=== PATIENT | male | born 1945 | race Caucasian/White ===

== ENCOUNTER → 2016-12-09 | Outpatient (CLI) | payer MEDICARE, OTHER ==
[~2016-12-09] MED LIST: ALTACE PO; ARTANE2 M1 PO; ASPIRIN81 M2 PO; BAYER ASPIRIN325 M1 PO; BYSTOLIC10 MG PO; BYSTOLIC5 MG PO; CENTRUM COMPLE1 EACH PO; CENTRUM SILVER PO; COLACE PO; CYANOCOBALAM1000 MCG PO; DAKIN'S MODIF1000 ML EXT; DIABETA2.5 MG PO; FISH OIL 1,2001 CAP PO; FLUOROURACIL IV; GLUCOTROL PO; LISINOPRIL10 MG PO; NIACIN ER500 MG PO; NIASPAN PO; NITROGLYCERIN0.4 MG SL; PERCOCET 7.5/321 TAB PO; PERCOCET 71 UDTAB 7. PO; PLAVIX PO; PRAVASTATIN SOD40 MG PO; PROTONIX PO; RAPAFLO4 MG PO; VITAMIN B-1100 M1 PO; VITAMIN B650 M1 PO; VITAMIN C1000 M2 PO
--- NOTE | ~2016-12-09 | CT2 ---
[facility] A Service of [facility] RADIOLOGY TEXT RESULTS PATIENT: BHANU JOE LOCATION: [facility] : 49 UNIT #: [id number] AGE: [address]: Bhupinder Up MD SEX: M ORDER DR: [id number] [facility] [address] [place], [place] [address] [id number] O MR#: [id number] Acc #: [id number] NAME: BHANU JOE : 1945 SEX: M STUDY DATE/TIME: 12/09/2016 10:40 UNIT: [facility] ROOM: STUDY DESCRIPTION: CT Abd and Pelv W Cont Attending Physician: Bhupinder Up M.D. Referring Physician: Bhupinder Up M.D. Ordering Physician: Bhupinder Up M.D. Primary Care Physician: Edmond Harris M.D. MEDICAL IMAGING REPORT This report is preliminary unless electronic signature is present EXAM CT abdomen and pelvis with contrast. INDICATION Restaging colorectal cancer. Diagnosed 2013. Observation for metastatic disease. PROCEDURE Contrast-enhanced CT of the abdomen and pelvis. COMPARISON 10/09/[address] exam was performed with one or more of the following radiation dose reduction techniques: automatic exposure control, adjustment of mA and/or kV according to patient size, and iterative reconstruction. FINDINGS ABDOMEN WITH CONTRAST: Included lung bases clear. Liver, spleen, adrenal glands unremarkable. Pancreas atrophic but shows no acute findings. Some nodular enhancement at the fundus of the gallbladder is similar to the previous study. Bowel loops nondilated. Postsurgical change in the sigmoid colon. Moderate colonic stool. Appendix is normal. There is a 6.1 cm hernia in the anterolateral left mid abdomen that contains uncomplicated small bowel loops. Similar to the previous study, possibly slightly larger. There is a 8.3 cm cyst in the upper pole of the left kidney. PELVIS WITH CONTRAST: No pelvic mass or fluid. No aggressive appearing bone lesion. [facility] A Service of [facility] RADIOLOGY TEXT RESULTS PATIENT: BHANU JOE LOCATION: [facility] : 49 UNIT #: [id number] AGE: [address]: Bhupinder Up MD SEX: M ORDER DR: IMPRESSION No evidence for local recurrence or metastatic disease in the abdomen or pelvis. Somewhat irregular nodular enhancement. The fundus of the gallbladder is similar to the previous study. 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 This has a similar appearance dating back to at least 2014. Other findings detailed above. A left mid abdominal hernia containing small bowel loops is similar to the previous study. It is larger than on the 2015 study. Dictated by... Gerald Bautista M.D. THIS IS AN ELECTRONICALLY VERIFIED REPORT Gerald Bautista M.D. at 12/10/2016 7:34 AM GORAN/jose carlos TD: 12/09/2016 16:51 JOB #: [id number] MEDICAL IMAGING REPORT Page 1 of 1 COPY
[2016-12-09 11:21] LABS: POC - CREATININE 1.21 mg/dL (0.64-1.27); POC - GFR >60.0 mL/min (>60)
== END | disposition home or self-care (01) ==
LOC: CCAT 09:05
PROVIDERS: Radiology Radiation Oncology
DX: Z08 Encounter for follow-up examination after completed treatment for malignant neoplasm (principal); K46.9 Unspecified abdominal hernia without obstruction or gangrene; K86.89 Other specified diseases of pancreas; N28.1 Cyst of kidney, acquired; Z85.048 Personal history of other malignant neoplasm of rectum, rectosigmoid junction, and anus
CPT/HCPCS: 74177; 82565; Q9967